=== PATIENT | female | born 1990 | race Hispanic/Latino ===

== ENCOUNTER 2017-03-02 18:12 | Emergency (ER) | payer BC ==
[~2017-03-02] VITALS: Ht 142.2 cm; Wt 65.6 kg
[~2017-03-02 18:12] MED LIST: FEOSOL45 MG PO; FERR SULFATE325 MG PO; IBUPROFEN600 MG PO; NORCO1 TA2 PO; PRENATABS RX PO
[2017-03-02] MEDS ORDERED: BC FAST PAI1 PO (18:29)
[2017-03-02 19:41] LABS: HEMATOCRIT 36.1 % (37.0-47.0); HEMOGLOBIN 11.1 g/dl (12.0-16.0); IMMATURE GRANULOCYTES 0.3 % (0.0-1.0); MEAN CELL VOLUME 76.6 fL CALC (80.0-100.0); MEAN CORPUSCULAR HGB 23.6 pG CALC (26.0-32.0); MEAN CORPUSCULAR HGB CONC 30.7 g/L CALC (32.0-36.0); NEUT# 5.14 thou/uL (2.00-7.15); RED BLOOD COUNT 4.71 mill/uL (4.20-5.60); RED CELL DISTRI WIDTH 16.6 % (11.5-15.5)
[2017-03-02 19:50] LABS: URINE BILIRUBIN - DIPSTICK NEGATIVE (NEGATIVE); URINE BLOOD DIPSTICK TRACE-INTACT (NEGATIVE); URINE CLARITY CLEAR; URINE COLOR YELLOW; URINE GLUCOSE - DIPSTICK NEGATIVE (NEGATIVE); URINE KETONE NEGATIVE (NEGATIVE); URINE LEUK ESTERASE NEGATIVE (NEGATIVE); URINE NITRITE - DIPSTICK NEGATIVE (Negative); URINE PH 5.5 (4.5-8.0); URINE PROTEIN - DIPSTICK NEGATIVE (NEG-TRACE); URINE UROBILINOGEN - DIPSTICK 0.2 E.U./dL (0.2)
[2017-03-02 19:53] LABS: ALBUMIN 4.7 g/dL (3.2-5.0); ALKALINE PHOSPHATASE 82 u/l (38-126); AMYLASE 35 u/l (30-110); ANION GAP 19 (6-22 (CALC)); BILIRUBIN, TOTAL 0.9 mg/dL (0.0-1.4); BUN 8 mg/dL (7-17); BUN/CREATININE RATIO 16 (12-20 (CALC)); CALCIUM 9.4 mg/dL (8.4-10.2); CARBON DIOXIDE 20 mmol/l (22-30); CHLORIDE 107 mmol/l (95-108); CREATININE 0.5 mg/dL (0.5-1.0); GFR > 60 ML/MIN (>=60 (CALC)); GFR FOR AFR.AMER. > 60 ML/MIN (>=60 (CALC)); GLUCOSE 101 mg/dL (65-105); LIPASE 65 u/l (23-300); POTASSIUM 4.5 mmol/l (3.5-5.1); SGOT/AST 45 u/l (14-36); SGPT/ALT 32 u/l (9-52); SODIUM 141 mmol/l (137-146); TOTAL PROTEIN 8.3 g/dL (6.3-8.2)
[2017-03-02 22:32] VITALS: BP 108/68
== END 2017-03-02 22:39 | disposition home or self-care (01) | DRG 392 ==
LOC: ED 18:12
PROVIDERS: Emergency Medicine
DX: R10.31 Right lower quadrant pain (principal)

== ENCOUNTER 2020-10-09 18:42 | Emergency (ER) | payer BC ==
[~2020-10-09] VITALS: Ht 142.2 cm; Wt 67.2 kg
[~2020-10-09 18:42] MED LIST changes: +BC FAST PAI1 PO
[2020-10-09 19:13] LABS: URINE BILIRUBIN - DIPSTICK NEGATIVE (NEGATIVE); URINE BLOOD DIPSTICK TRACE-LYSED (NEGATIVE); URINE COLOR YELLOW; URINE GLUCOSE - DIPSTICK NEGATIVE (NEGATIVE); URINE KETONE NEGATIVE (NEGATIVE); URINE PROTEIN - DIPSTICK NEGATIVE (NEG-TRACE); URINE SPECIFIC GRAVITY 1.015; URINE UROBILINOGEN - DIPSTICK 0.2 E.U./dL (0.2)
[2020-10-09 19:15] LABS: URINE LEUK ESTERASE SMALL (NEGATIVE); URINE NITRITE - DIPSTICK NEGATIVE (Negative)
[2020-10-09 19:23] LABS: URINE RBC 0-2 RBC/hpf (0-5); URINE SQUAMOUS EPITHELIAL CELL FEW EPI/hpf (0-FEW)
[2020-10-09] MEDS ORDERED: PROAIR HFA108 MCG/AC IN (20:01)
[2020-10-09] MEDS ORDERED: MEDDOSEPAK PO (20:01)
[2020-10-09] MEDS ORDERED: TESSALON PERLE100 MG PO (20:01)
[2020-10-09 20:07] VITALS: BP 114/82
== END 2020-10-09 20:07 | disposition home or self-care (01) | DRG 204 ==
LOC: ED 18:42
PROVIDERS: Family Medicine
DX: R05 Cough (principal); Z20.822 Contact with and (suspected) exposure to COVID-19